=== PATIENT | female | born 1960 | race Caucasian/White ===

== ENCOUNTER 2016-11-14 17:37 | Emergency (ER) | payer OTHER ==
[2016-11-14 18:22] LABS: EOSINOPHILS 0.4 % (0.0-6.0); HEMATOCRIT 41.8 % (36.0-48.0); HEMOGLOBIN 13.8 g/dL (12.0-16.0); LYMPHOCYTES 44.5 % (20.0-40.0); MEAN CELL VOLUME 90.6 fL (80.0-100.0); MEAN CORPUS. HGB CONCENTRATION 32.9 g/dL (32.0-36.0); MEAN CORPUSCULAR HEMOGLOBIN 29.8 pg (29.0-35.0); MEAN PLATELET VOLUME 7.7 fL (7.4-10.4); MONOCYTES# 0.2 X 10^3uL (0.2-1.0); NEUTROPHILS 42.1 % (54.0-75.0); NEUTROPHILS# 0.8 X 10^3uL (2.6-6.7); PLATELET COUNT 120 X 10^3uL (130-440); RED BLOOD COUNT 4.61 X 10^6uL (4.20-6.10); RED CELL DISTRIBUTION WIDTH 12.6 % (11.5-14.5)
[2016-11-14 18:30] LABS: ALBUMIN 3.9 g/dL (3.5-5.0); ALKALINE PHOSPHATASE 48 U/L (38-126); ALT 35 U/L (9-52); AST 26 U/L (14-36); BILIRUBIN, DIRECT 0.2 mg/dL (0.0-0.4); BILIRUBIN, TOTAL 0.5 mg/dL (0.2-1.3); BLOOD UREA NITROGEN 11 mg/dL (7-17); CALCIUM 8.9 mg/dL (8.4-10.2); CHLORIDE 105 mmol/L (98-107); CREATININE 0.8 mg/dL (0.5-1.0); EST GLOMERULAR FILTRATION RATE > 60 mL/min; GLUCOSE 115 mg/dL (70-100); LIPASE 195 U/L (23-300); POTASSIUM 3.7 mmol/L (3.5-5.1); SODIUM 135 mmol/L (137-145)
[2016-11-14 18:43] LABS: URINE MUCUS NONE SEEN (Up to 25%); URINE RBC NONE SEEN (0-5/hpf); URINE WBC NONE SEEN (0-4/hpf)
[2016-11-14 19:00] LABS: URINE APPEARANCE CLEAR; URINE COLOR YELLOW
[2016-11-14 19:01] LABS: URINE BACTERIA NONE SEEN (<10/hpf); URINE BILIRUBIN NEGATIVE (NEGATIVE); URINE BLOOD NEGATIVE (NEGATIVE); URINE GLUCOSE NORMAL (NEGATIVE); URINE KETONE NEGATIVE (NEGATIVE); URINE LEUKOCYTE ESTERASE NEGATIVE (NEGATIVE); URINE NITRITE NEGATIVE (NEGATIVE); URINE PH 5.5 (5-7); URINE PROTEIN NEGATIVE (NEG - TRACE); URINE SPECIFIC GRAVITY < or = 1.005 (0.001-1.035); URINE SQUAMOUS EPITHELIAL CELL 0-5/hpf (<= 15/hpf); URINE UROBILINOGEN 0.2mg/dL (Normal) (NEG-1mg/dL)
[2016-11-14] MEDS ORDERED: OSELTAMIVIR PHOSPHATE 75 MG CAPSULE PO ONE (19:10)
--- NOTE | 2016-11-14 19:38 | ER PHYSICIAN DOCUMENTATION ---
Physician Documentation [facility] Name:Delma Ram Age:55 yrs Sex:Female :1960 Arrival Date:11/14/2016 Time:17:37 Bed1 Private MD: Beny Dukes Disposition: 11/14/16 18:42 Discharged to Home/Self Care. Impression: Influenza. - Condition is Good. - Discharge Instructions: INFLUENZA (Adult). - Prescriptions for Tamiflu 75 mg Oral Capsule - take 1 capsule by ORAL route every 12 hours for 5 days; 10 capsule. - Medical Reconciliation form form. - Follow up: Radha Gold MD; When: 2 - 3 days; Reason: Continuance of care. - Problem is new. - Symptoms have improved. HPI: 11/14 18:00 This 55 yrs old Female presents to ER via Private Vehicle with complaints of jm Cough. 18:00 The patient or guardian reports cough. Associated signs and symptoms: Pertinent jm positives: fever, sore throat. Pt also w myalgias. Pt seen by GUI Ann yesterday for a tooth infection and sinus infection, but her fever had gotten worse and now she has a bad cough. . Historical: - Allergies: No known drug Allergies; - Home Meds: 1. hormones - PMHx: PNEUMONIA; pleuricy; - PSHx: MCL; ; - Tetanus: < 10 years. - Ebola Screening: : Patient negative for fever greater than or equal to 101.5 degrees Fahrenheit, and additional compatible Ebola Virus Disease symptoms. Patient denies exposure to infectious person. Patient denies travel to an Ebola-affected area in the 21 days before illness onset. No symptoms or risks identified at this time. . - Immunization history: Flu Vaccine < 1 year. - Social history: Smoking status: Patient states was never smoker of tobacco. ROS: 18:00 Constitutional: Positive for body aches, chills, fatigue, fever, malaise, poor PO jm intake. 18:00 ENT: Positive for dental pain, sinus pain, sore throat. 18:00 Respiratory: Positive for cough, dyspnea on exertion. 18:00 Neuro: Positive for weakness, Negative for headache. Exam: 18:00 Constitutional: The patient appears alert, awake, comfortable. jm 18:00 ENT: Posterior pharynx: is normal, Dental exam: normal. 18:00 Cardiovascular: Rate: tachycardic, Rhythm: regular. 18:00 Respiratory: Respirations: normal, Breath sounds: are normal, active nonproductive cough noted. 18:00 Psych: Behavior/mood is cooperative, Affect is calm. Vital Signs: 17:53 BP 92 / 53; Pulse 106; Resp 18; Temp 99.3; Pulse Ox 93% ; Weight 63.5 kg; Height 5 ft. jt 2 in. (157.48 cm); Pain 2/10; 19:15 BP 113 / 78; Pulse 78; Resp 15; Pulse Ox 96% on R/A; mk4 17:53 Body Mass Index 25.61 (63.50 kg, 157.48 cm) jt MDM: 18:00 Differential Diagnosis: Influenza Upper Respiratory Infection Sinusitis Pharyngitis jm Viral Syndrome. Data reviewed: vital signs, nurses notes, lab test result(s), radiologic studies, and as a result, I will discharge patient. Test interpretation: by ED physician or midlevel provider: plain radiologic studies. Counseling: I had a detailed discussion with the patient and/or guardian regarding: the historical points, exam findings, and any diagnostic results supporting the discharge/admit diagnosis, lab results, radiology results, the need for outpatient follow up, with the patient's primary care provider, hematology. Medication response: The patient's symptoms have improved, ED course: Pt w influenza B, but will keep pt on augmentin for tooth infection. Pt has known about neutropenia for a while now, but this time it is lower that usual. Pt states she will f/u w Dr. Isaac and her PCP. . 18:06 Patient medically screened. sarahy 11/14 18:32 Order name: LACTATE; Complete Time: 18:33 EDMS 11/14 18:32 Order name: BASIC METABOLIC PANEL; Complete Time: 18:41 EDVT 11/14 18:32 Order name: HEPATIC PANEL; Complete Time: 18:41 EDMS 11/14 18:32 Order name: LIPASE; Complete Time: 18:41 EDMS 11/14 18:37 Order name: CBC AUTO DIF, MDIF/RMOR IF IND; Complete Time: 18:41 EDVT 11/14 18:39 Order name: INFLUENZA A/B; Complete Time: 18:39 EDMS 11/14 19:02 Order name: UA W/ MICRO -CULTURE IF IND; Complete Time: 08:50 [facility] 11/14 18:12 Order name: I & O; Complete Time: 18:18 11/14 18:12 Order name: NPO; Complete Time: 18:18 11/14 18:12 Order name: Pulse Ox Continuous; Complete Time: 18:18 Dispensed Medications: 18:31 CANCELLED (Physician Discretion): NS 0.9% 2000 ml IV at bolus once tg 19:17 Drug: Tamiflu 75 mg; Route: PO; mk4 19:19 Follow up: Response: Pharmacy closed - take home med pack; No adverse reaction mk4 Signatures: Jose Elias Toscano RN RN tg Beny Grande MD MD jm King, Melody 4
--- NOTE | 2016-11-14 19:38 | ER NURSING DOCUMENTATION ---
Nurse's Notes [facility] Name:Delma Ram Age:55 yrs Sex:Female :1960 Arrival Date:11/14/2016 Time:17:37 Bed1 Private MD: Diagnosis:Influenza Presentation: 11/14 17:46 Acuity: ALICIA 3 tg 19:00 Presenting complaint: Patient states: Cough, fever, URI symptoms, tooth infection. tg Taking augmentin, albuteral, advair. Transition of care: patient was not received from another setting of care. 19:00 Method Of Arrival: Private Vehicle tg Triage Assessment: 18:26 General: Appears uncomfortable, Behavior is cooperative, pleasant. Cardiovascular: tg Capillary refill < 3 seconds. Respiratory: Respiratory effort is even, unlabored, Breath sounds are clear bilaterally. Reports cough that is. GI:. Derm: Skin is pink, warm & dry. Historical: - Allergies: No known drug Allergies; - Home Meds: 1. hormones - PMHx: PNEUMONIA; pleuricy; - PSHx: MCL; ; - Tetanus: < 10 years. - Ebola Screening: : Patient negative for fever greater than or equal to 101.5 degrees Fahrenheit, and additional compatible Ebola Virus Disease symptoms. Patient denies exposure to infectious person. Patient denies travel to an Ebola-affected area in the 21 days before illness onset. No symptoms or risks identified at this time. . - Immunization history: Flu Vaccine < 1 year. - Social history: Smoking status: Patient states was never smoker of tobacco. Screenin:00 Infectious Disease Risk Unable to Obtain. Abuse screen: Denies threats or abuse. Denies tg injuries from another. Nutritional screening: No deficits noted. Vital Signs: 17:53 BP 92 / 53; Pulse 106; Resp 18; Temp 99.3; Pulse Ox 93% ; Weight 63.5 kg; Height 5 ft. jt 2 in. (157.48 cm); Pain 2/10; 19:15 BP 113 / 78; Pulse 78; Resp 15; Pulse Ox 96% on R/A; mk4 17:53 Body Mass Index 25.61 (63.50 kg, 157.48 cm) jt ED Course: 17:45 Patient arrived in ED. jt 17:46 Triage completed. tg 18:06 Beny Grande MD is Attending Physician. sarahy 18:29 Arm band placed on. tg 18:31 Patient moved to radiology. pm1 18:42 Radha Gold MD is Referral Physician. jm 18:43 Patient moved back from radiology. pm1 19:01 Valuables Remains with patient. tg 19:15 Trish Casanova is Primary Nurse. mk4 Administered Medications: 18:31 CANCELLED (Physician Discretion): NS 0.9% 2000 ml IV at bolus once tg 19:17 Drug: Tamiflu 75 mg; Route: PO; mk4 19:19 Follow up: Response: Pharmacy closed - take home med pack; No adverse reaction mk4 Outcome: 18:42 Discharge ordered by MD. 19:15 Discharged to home ambulatory. mk4 19:15 Condition: good 19:15 Discharge Assessment: Patient awake, alert and oriented x 3. No cognitive and/or functional deficits noted. Patient verbalized understanding of disposition instructions. 19:15 Discharge instructions given to patient, Instructed on discharge instructions, follow up and referral plans. Incentive Spirometer Demonstrated understanding of instructions, Prescriptions given X 1. 19:37 Patient left the ED. mk4 Signatures: Jose Elias Toscano, RN RN Beny Domínguez MD MD jm McBride, Philisha pm1 Trish Casanova mk4 Merced Torres
--- NOTE | 2016-11-15 17:46 | RADIOLOGY REPORT ---
Two views of the chest are compared with prior films dated 01/15/2016. The heart and vessels are stable and unremarkable. The lung rapp are clear. No infiltrate, fluid or pneumothorax is seen. IMPRESSION: Stable, unremarkable two views of the chest. MTDD
== END 2016-11-14 19:38 | disposition home or self-care (01) ==
LOC: ER 17:37
DX: J11.1 Influenza due to unidentified influenza virus with other respiratory manifestations (principal); K04.7 Periapical abscess without sinus; J01.90 Acute sinusitis, unspecified; D70.9 Neutropenia, unspecified
CPT/HCPCS: 71020; 80048; 80076; 81001; 83605; 83690; 85025; 87449; 99283

== ENCOUNTER 2016-12-28 08:33 | Day surgery (SDC) | payer OTHER ==
[2016-12-28 09:08] VITALS: TEMP 98.2
[2016-12-28] MEDS ORDERED: ceFAZolin 1 GM in NORMAL SALINE MINI-BAG+ 100 ML IV ONE ×3 (09:08→11:19)
[2016-12-28] MEDS ORDERED: LIDOCAINE HCL 1% 20 ML VIAL SUBCUT ONE (09:10)
[2016-12-28] MEDS ORDERED: MIDAZOLAM HCL 2 MG/2 ML SYR IV ONE (09:10)
[2016-12-28] MEDS ORDERED: ACETAMINOPHEN 1,000 MG/100 ML VIAL IV SCH ×2 (09:15→11:19)
[2016-12-28] MEDS ORDERED: FAMOTIDINE IN SALINE, ISO-OSM 20 MG/50 ML PIGGYBACK IV SCH ×2 (09:15→11:19)
[2016-12-28] MEDS ORDERED: ceFAZolin 1 GM/10 ML VIAL ONE (09:24)
[2016-12-28] MEDS ORDERED: MIDAZOLAM HCL 2 MG/2 ML VIAL ONE (09:24)
[2016-12-28] MEDS ORDERED: BUPIVACAINE/EPI 0.25% 1 VIAL VIAL ONE (09:26)
[2016-12-28] MEDS ORDERED: BUPIVACAINE HCL/PF 0.25% 10 ML VIAL INJ ONE (09:29)
[2016-12-28] MEDS ORDERED: FENTANYL 250 MCG/5 ML VIAL ONE (09:35)
[2016-12-28] MEDS ORDERED: DEXAMETHASONE 4 MG/ML VIAL ONE (09:35)
[2016-12-28] MEDS ORDERED: KETOROLAC TROMETHAMINE 30 MG/ML VIAL ONE (09:35)
[2016-12-28] MEDS ORDERED: ONDANSETRON HCL 4 MG/2 ML VIAL ONE (09:36)
[2016-12-28] MEDS ORDERED: LACTATED RINGERS 1,000 ML IV SCH ×3 (10:00→11:19)
--- NOTE | 2016-12-28 11:14 | OPERATIVE REPORT ---
DATE OF SURGERY: 12/28/16 SURGEON: Abran Odell MD PREOPERATIVE DIAGNOSIS: Right medial meniscal tear. POSTOPERATIVE DIAGNOSIS: Right medial meniscal tear with patellofemoral arthroses as well as an area of grade IV degenerative change on the medial femoral condyle and medial tibial plateau. PROCEDURE PERFORMED: Right knee arthroscopy. INDICATIONS FOR PROCEDURE: Patient is a 56-year-old female who felt spontaneous onset of pain and recurrent swelling in her right knee. Her symptoms were refractory to conservative management and a subsequent MRI revealed findings consistent with a tear in the posterior horn of the medial meniscus. Due to her ongoing symptoms, she was taken to the operating room for right knee arthroscopy. SUMMARY: After informed consent was obtained, the patient was taken to the operating room where she was placed in the supine position under general anesthesia. After adequate anesthesia was achieved, the right knee and lower extremity was prepped and draped in the usual sterile fashion, the wound was very gently exsanguinated, and a tourniquet was inflated about the proximal thigh to 275 mmHg. A standard anterolateral arthroscopic portal was then established, and the arthroscope was guided into the knee and directed into the suprapatellar pouch. The suprapatellar pouch was examined and noted to be free of any loose bodies or other pathology. The articular surface of the patella was examined and noted to have diffuse grade 2 chondromalacia. However, the femoral trochlea had more severe chondromalacia superiorly, and the lower portion of the femoral trochlea actually had an area of grade 4 chondromalacia. The arthroscope was then guided into the medial gutter which was noted to be free of any loose bodies or other pathology. The arthroscope was then guided into the anterior portion of the knee and directed medially at which time the anterior medial incision was established under direct visualization. A synovectomy was performed in the anterior portion of the knee in order to allow better visualization, and the anterior cruciate ligament was examined and noted to be stable and intact. The arthroscope was then guided into the medial compartment, at which time it was noted that there was a small area of grade 4 degenerative change on the anterior aspect of the medial tibial plateau, mostly beneath the meniscus. There was a fairly extensive tear in the mid portion of the medial meniscus toward the posterior horn. The torn portion of the meniscus was resected and then it was shaved to a stable rim. The patient was also noted to have an area of grade 4 chondromalacia of the medial femoral condyle. The medial compartment was free of any additional pathology. The arthroscope was then guided into the lateral compartment and the lateral meniscus was examined and noted to be stable and intact. There was no significant chondromalacia on the lateral femoral condyle or lateral tibial plateau and the remainder of the lateral compartment was free of any additional pathology. The arthroscope was then guided into the lateral gutter which was also noted to be free of any loose bodies or other pathologies. The arthroscope was then guided back into the anterior portion of the knee at which time hemostasis was achieved using the Arthrex radiofrequency wand. The excess fluid was drained, and the knee was infused with 20 mL of 0.25% Marcaine with epinephrine. The incisions were each closed with a single 4-0 nylon suture, and a lightly compressive sterile dressing was applied. The patient tolerated the procedure well, and was taken to the recovery room in stable condition. ESTIMATED BLOOD LOSS: Minimal. FLUIDS: Lactated ringers 1100 mL. TOURNIQUET TIME: 29 minutes. [facility]
[2016-12-28] MEDS ORDERED: FENTANYL 100 MCG/2 ML VIAL IV PRN (11:19)
[2016-12-28] MEDS ORDERED: ONDANSETRON HCL 4 MG/2 ML VIAL IV PRN (11:19)
[2016-12-28] MEDS ORDERED: MORPHINE SULFATE 10 MG/ML SYR IV PRN (11:19)
[2016-12-28] MEDS: HYDROmorphone HCL 1 MG/ML SYR IV PRN ×2 (11:27→11:42)
[2016-12-28 12:10] VITALS: BP 105/81; PULSE 74; RESP 11; O2SAT 91
--- NOTE | 2017-01-05 09:13 | PREOPERATIVE H&P ---
History of Present Illness (Abran Odell MD; 12/27/2016 3:33 PM) The patient is here for a follow-up with a tear in the posterior horn of her right medial meniscus. She is scheduled for right knee arthroscopy tomorrow, and therefore she is here for preop discussion and counseling. Allergies (Andreea Wong MA; 12/27/2016 3:13 PM) No Known Drug Allergies Family History (Andreea Wong MA; 12/27/2016 3:13 PM) Non-Contributory Family History Social History (Andreea Wong MA; 12/27/2016 3:13 PM) Seat Belt Use No Drug Use Alcohol use Occasional alcohol use. Tobacco use Never smoker. 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 Number of Children Biological, 4. 2 of each 20, 24, 27, 30. 2 grandchildren Residency Status Child Abuse No physical or sexual abuse history. Medication History (Andreea Wong MA; 12/27/2016 3:17 PM) Ventolin HFA (108 (90 Base)MCG/ACT Aerosol Soln, 2 (two) puffs Inhalation every four hours, as needed, Taken starting 01/11/2013) Active. (for shortness of breath, wheeze) Zolpidem Tartrate (5MG Tablet, 1-2 Oral at bedtime as needed, Taken starting ) Active. Estradiol (0.5MG Tablet, 1 (one) Oral daily, Taken starting 10/29/2016) Active. MedroxyPROGESTERone Acetate (2.5MG Tablet, 1 (one) Tablet Oral daily, Taken starting 01/01/2016) Active. tumeric Active. Multivitamins (1 Oral daily) Active. Adult Aspirin EC Low Strength (81MG Tablet DR, 1 Oral three times a week) Active. (Per Dr Gold) Medications Reconciled Vitamin D (1000UNIT Tablet, Oral) Active. Calcium (150MG Tablet, Oral) Active. Ibuprofen (200MG Capsule, Oral) Active. (6-9 daily) Tylenol (325MG Tablet, Oral) Active. Vitals (Andreea Wong MA; 12/27/2016 3:19 PM) 12/27/2016 3:17 PM Weight: 140 lb Weight was reported by patient. LMP: (Menopause) Temp.: 98.6F(Temporal) Pulse: 95 (Regular) Resp.: 16 (Unlabored) BP: 95/69 (Sitting, Left Arm, Standard) Physical Exam (Abran Odell MD; 12/27/2016 3:34 PM) Musculoskeletal Physical examination today's essentially unchanged. She does have a 1+ effusion. 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 Plan: The patient will be typed taken to the operative room tomorrow for right knee arthroscopy. We discussed the operation, risks, indications. The risks of the procedure include but are not limited to: Infection, blood vessel or nerve injury, persistent pain or stiffness in the knee. The patient has acknowledged risks, and desires to proceed as planned. Signed by Abran Odell MD (12/27/2016 3:36 PM) GERTRUDIS
== END 2016-12-28 12:10 | disposition home or self-care (01) ==
LOC: SDS 08:33
PROVIDERS: ATTEND Orthopaedic Surgery
DX: M23.231 Derangement of other medial meniscus due to old tear or injury, right knee (principal); J45.909 Unspecified asthma, uncomplicated; M81.0 Age-related osteoporosis without current pathological fracture; Z79.899 Other long term (current) drug therapy
CPT/HCPCS: J0690; J1170; J1885; J2250; J2405